=== PATIENT | female | born 2000 | race Two or more races ===

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

== ENCOUNTER 2018-10-19 11:28 | Emergency (ER) | payer SELFPAY ==
[~2018-10-19] VITALS: Ht 162.6 cm; Wt 89.4 kg
[~2018-10-19 11:28] MED LIST changes: +AMOX1TAB61 PO; +HYDR-2761 PO; +METR-34 PO; +OSEL75CA PO; +SULF1TAB24 PO
[2018-10-19 11:43] VITALS: BP 119/72
[2018-10-19] MEDS ORDERED: IV NORMAL SALINE 1000ML BAG 1,000 ML IV SCH (11:56)
[2018-10-19] MEDS ORDERED: ONDANSETRON PF 4 MG/2 ML VIAL. IV ONE (12:00)
--- NOTE | 2018-10-19 12:07 | PHYS DOC ---
Past Medical History Past Medical History: No Pertinent History, Other Additional Past Medical Histor: seasonal allergies Past Surgical History: No Surgical History Alcohol Use: None Drug Use: None Adult General Chief Complaint Chief Complaint: NAUSEA/VOMITING/DIARRHA HPI HPI Patient is a 18 year old female who presents with complaining of nausea and vomiting and diarrhea. Patient complaining of intermittent episodes of nausea and vomiting and diarrhea for the last 3 days. She had 3 episodes of vomiting 3 days ago and one episode of vomiting today with one episode of diarrhea. Patient complaining of constant nausea without abdominal pain, urinary symptoms, vaginal bleeding or discharge. Patient had negative home test at home and in triage. Patient states she had the same episode of nausea more than one year ago. Review of Systems Review of Systems Constitutional: Denies fever or chills [] Eyes: Denies change in visual acuity, redness, or eye pain [] HENT: Denies nasal congestion or sore throat [] Respiratory: Denies cough or shortness of breath [] Cardiovascular: No additional information not addressed in HPI [] GI: Denies abdominal pain, reports nausea, vomiting, diarrhea [] : Denies dysuria or hematuria [] Musculoskeletal: Denies back pain or joint pain [] Integument: Denies rash or skin lesions [] Neurologic: Denies headache, focal weakness or sensory changes [] Endocrine: Denies polyuria or polydipsia [] All other systems were reviewed and found to be within normal limits, except as documented in this note. Current Medications Current Medications Current Medications Medications (Trade) Dose Ordered Sig/Roc Start Time Stop Time Status Last Admin Dose Admin Ondansetron HCl (Zofran) 4 mg 1X ONCE 10/19/18 12:00 10/19/18 12:01 DC 10/19/18 12:07 4 MG Sodium Chloride 1,000 ml @ 1,000 mls/hr Q1H 10/19/18 11:56 10/19/18 12:55 DC 10/19/18 12:04 1,000 MLS/HR Allergies Allergies Allergies Coded Allergies Type Severity Reaction Last Updated Verified No Known Drug Allergies 06/07/16 No Physical Exam Physical Exam Constitutional: Well developed, well nourished, mild distress, non-toxic appe arance. [] HENT: Normocephalic, atraumatic, oropharynx moist. Eyes: PERRLA, EOMI, conjunctiva normal, no discharge. [] Neck: Normal range of motion, no tenderness, supple, no stridor. [] Cardiovascular:Heart rate regular rhythm, no murmur [] Lungs & Thorax: Bilateral breath sounds clear to auscultation [] Abdomen: Bowel sounds normal, soft, no tenderness, no masses, no pulsatile masses. [] Skin: Warm, dry, no erythema, no rash. [] Back: No tenderness, no CVA tenderness. [] Extremities: No tenderness, no cyanosis, no clubbing, ROM intact, no edema. [] Neurologic: Alert and oriented X 3, normal motor function, normal sensory function, no focal deficits noted. [] Psychologic: Affect anxious, judgement normal, mood normal. [] Current Patient Data Vital Signs Vital Signs Date Time Temp Pulse Resp B/P (MAP) Pulse Ox O2 Delivery O2 Flow Rate FiO2 10/19/18 11:43 98.2 80 17 119/72 (88) 99 Room Air 98.2 Lab Values Laboratory Tests Test 10/19/18 11:35 10/19/18 11:45 10/19/18 12:00 Urine Collection Type Unknown Urine Color Yellow Urine Clarity Clear Urine pH 7.5 Urine Specific [place] 1.015 Urine Protein Negative mg/dL (NEG-TRACE) Urine Glucose (UA) Negative mg/dL (NEG) Urine Ketones (Stick) Negative mg/dL (NEG) Urine Blood Small (NEG) Urine Nitrite Negative (NEG) Urine Bilirubin Negative (NEG) Urine Urobilinogen Dipstick 0.2 mg/dL (0.2 mg/dL) Urine Leukocyte Esterase Large (NEG) Urine RBC Occ /HPF (0-2) Urine WBC 5-10 /HPF (0-4) Urine Squamous Epithelial Cells Mod /LPF Urine Bacteria Few /HPF (0-FEW) POC Urine HCG, Qualitative Hcg negative (Negative) White Blood Count 5.6 x10^3/uL (4.0-11.0) Red Blood Count 4.45 x10^6/uL (3.50-5.40) Hemoglobin 13.5 g/dL (12.0-15.5) Hematocrit 40.1 % (36.0-47.0) Mean Corpuscular Volume 90 fL (79-100) Mean Corpuscular Hemoglobin 30 pg (25-35) Mean Corpuscular Hemoglobin Concent 34 g/dL (31-37) Red Cell Distribution Width 13.0 % (11.5-14.5) Platelet Count 299 x10^3/uL (140-400) Neutrophils (%) (Auto) 54 % (31-73) Lymphocytes (%) (Auto) 36 % (24-48) Monocytes (%) (Auto) 7 % (0-9) Eosinophils (%) (Auto) 3 % (0-3) Basophils (%) (Auto) 0 % (0-3) Neutrophils # (Auto) 3.0 x10^3/uL (1.8-7.7) Lymphocytes # (Auto) 2.0 x10^3/uL (1.0-4.8) Monocytes # (Auto) 0.4 x10^3/uL (0.0-1.1) Eosinophils # (Auto) 0.2 x10^3/uL (0.0-0.7) Basophils # (Auto) 0.0 x10^3/uL (0.0-0.2) Sodium Level 138 mmol/L (136-145) Potassium Level 4.2 mmol/L (3.5-5.1) Chloride Level 103 mmol/L (98-107) Carbon Dioxide Level 25 mmol/L (21-32) Anion Gap 10 (6-14) Blood Urea Nitrogen 6 mg/dL (7-20) L Creatinine 0.7 mg/dL (0.6-1.0) Estimated GFR (Cockcroft-Gault) 106.7 BUN/Creatinine Ratio 9 (6-20) Glucose Level 97 mg/dL (70-99) Calcium Level 8.8 mg/dL (8.5-10.1) Total Bilirubin 0.4 mg/dL (0.2-1.0) Aspartate Amino Transferase (AST) 17 U/L (15-37) Alanine Aminotransferase (ALT) 33 U/L (14-59) Alkaline Phosphatase 89 U/L (46-116) Total Protein 7.2 g/dL (6.4-8.2) Albumin 3.6 g/dL (3.4-5.0) Albumin/Globulin Ratio 1.0 (1.0-1.7) Lipase 61 U/L (73-393) L Laboratory Tests 10/19/18 12:00 Laboratory Tests 10/19/18 12:00 EKG EKG [] Radiology/Procedures Radiology/Procedures [] Course & Med Decision Making Course & Med Decision Making Pertinent Labs reviewed. (See chart for details) Evaluation of patient illness a 18-year-old female patient with complaining of episodes of nausea and vomiting and diarrhea. Patient had unremarkable physical exam and labs significant for UTI. Patient felt better after treatment with IV fluid and Zofran in ER. Patient was advised to take liquid diet and follow up with her primary care physician. I've spoken with the patient and/or caregivers. I've explained the patient's condition, diagnosis and treatment plan based on information available to me at this time. I've answered the patient's and/or caregivers questions and addressed any concerns. The patient and/or caregivers have a good understanding the patient's diagnosis, condition and treatment plan as can be expected at this point. Vital signs have been stabilized. The patient's condition is stable for discharge from the emergency department. The patient will pursue further outpatient evaluation with her primary care provider or other designated consulting physician as outlined in the discharge instructions. Patient and/or caregivers are agreeable to this plan of care and follow-up instructions have been explained in detail. The patient and/or caregivers have received these instructions in written format and expressed unde rstanding of these discharge instructions. The patient and her caregivers are aware that if any significant change in condition or worsening of symptoms should prompt him to immediately return to this of the closest emergency department. If an emergent department is not readily available I would en courage him to call 911. Dragon Disclaimer Dragon Disclaimer This electronic medical record was generated, in whole or in part, using a voice recognition dictation system. Departure Departure Impression: Primary Impression: Viral gastroenteritis Additional Impression: Urinary tract infection Disposition: HOME, SELF-CARE (at 1323) Condition: IMPROVED Referrals: SOPHIA BILLS MD (PCP) Patient Instructions: Urinary Tract Infection, Viral Gastroenteritis Additional Instructions: Drink plenty of liquids Follow-up with your primary care physician in 3-5 days Return to ER if not getting better Do not eat solid food today Scripts Ondansetron Hcl (ZOFRAN) 4 Mg Tablet 1 TAB PO PRN Q6-8HRS for nausea, #12 TAB Prov: BHAVNA SMYTH MD 10/19/18 Sulfamethoxazole/Trimethoprim (BACTRIM DS TABLET) 1 Each Tablet 1 TAB PO BID for infection, #6 TAB Prov: BHAVNA SMYTH MD 10/19/18 Problem Qualifiers Additional Impression: Urinary tract infection Urinary tract infection type: acute cystitis Hematuria presence: without hematuria Qualified Codes: N30.00 - Acute cystitis without hematuria BHAVNA SMYTH MD Oct 19, 2018 12:07
[2018-10-19 12:11] LABS: BASO % 0 % (0-3); EOS # 0.2 x10^3/uL (0.0-0.7); EOS % 3 % (0-3); HEMATOCRIT 40.1 % (36.0-47.0); HEMOGLOBIN 13.5 g/dL (12.0-15.5); LYMPH % 36 % (24-48); MEAN CORPUSCULAR HEMOGLOBIN 30 pg (25-35); MEAN CORPUSCULAR HGB CONC 34 g/dL (31-37); MEAN CORPUSCULAR VOLUME 90 fL (79-100); MONO # 0.4 x10^3/uL (0.0-1.1); MONO % 7 % (0-9); NEUT % 54 % (31-73); PLATELET COUNT 299 x10^3/uL (140-400); RED BLOOD COUNT 4.45 x10^6/uL (3.50-5.40); WHITE BLOOD COUNT 5.6 x10^3/uL (4.0-11.0)
[2018-10-19 12:27] LABS: CALCIUM 8.8 mg/dL (8.5-10.1); CREATININE 0.7 mg/dL (0.6-1.0); GFR 106.7; POTASSIUM 4.2 mmol/L (3.5-5.1)
[2018-10-19 12:33] LABS: ALBUMIN 3.6 g/dL (3.4-5.0); TOTAL BILIRUBIN 0.4 mg/dL (0.2-1.0); TOTAL PROTEIN 7.2 g/dL (6.4-8.2)
[2018-10-19 12:53] LABS: BILIRUBIN,URINE NEGATIVE (NEG); CLARITY,URINE CLEAR; COLOR,URINE YELLOW; NITRITE,URINE NEGATIVE (NEG); PH,URINE 7.5; PROTEIN,URINE NEGATIVE (NEG-TRACE); UROBILINOGEN,URINE 0.2 mg/dL (0.2 mg/dL)
[2018-10-19 12:57] LABS: BACTERIA,URINE FEW /HPF (0-FEW); RBC,URINE OCC /HPF (0-2); SQUAMOUS EPITHELIAL CELL,UR MOD /LPF
[2018-10-19] MEDS ORDERED: SULF1TAB24 PO (13:25)
[2018-10-19] MEDS ORDERED: ONDA4TAB7 PO (13:25)
== END 2018-10-19 13:35 | disposition home or self-care (01) ==
LOC: ER 11:28
DX: A08.4 Viral intestinal infection, unspecified (principal); N30.00 Acute cystitis without hematuria
CPT/HCPCS: 36415; 80053; 81001; 81025; 83690; 85025; 87086; 96361; 96374; 99284; J2405; J7030

== ENCOUNTER 2020-09-22 15:39 | Emergency (ER) | payer SELFPAY ==
[~2020-09-22] VITALS: Ht 162.6 cm; Wt 88.0 kg
[~2020-09-22 15:39] MED LIST changes: +ONDA4TAB7 PO
[2020-09-22 16:29] LABS: BASO % 1 % (0-3); EOS # 0.3 x10^3/uL (0.0-0.7); EOS % 4 % (0-3); HEMATOCRIT 35.9 % (36.0-47.0); HEMOGLOBIN 12.7 g/dL (12.0-15.5); LYMPH # 2.1 x10^3/uL (1.0-4.8); LYMPH % 33 % (24-48); MEAN CORPUSCULAR HEMOGLOBIN 32 pg (25-35); MEAN CORPUSCULAR HGB CONC 36 g/dL (31-37); MEAN CORPUSCULAR VOLUME 90 fL (79-100); MONO # 0.5 x10^3/uL (0.0-1.1); MONO % 8 % (0-9); NEUT # 3.5 x10^3/uL (1.8-7.7); NEUT % 54 % (31-73); PLATELET COUNT 280 x10^3/uL (140-400); RED BLOOD COUNT 3.98 x10^6/uL (3.50-5.40); RED CELL DISTRIBUTION WIDTH 12.9 % (11.5-14.5); WHITE BLOOD COUNT 6.5 x10^3/uL (4.0-11.0)
[2020-09-22] MEDS ORDERED: ONDANSETRON PF 4 MG/2 ML VIAL. IV ONE (16:30)
[2020-09-22] MEDS ORDERED: IV NORMAL SALINE 1000ML BAG 1,000 ML IV ONE (16:30)
[2020-09-22 16:35] LABS: BILIRUBIN,URINE NEGATIVE (NEG); CLARITY,URINE CLOUDY; COLOR,URINE YELLOW; NITRITE,URINE NEGATIVE (NEG); PH,URINE 5.5 (<5.0-8.0); PROTEIN,URINE NEGATIVE (NEG-TRACE); UROBILINOGEN,URINE 0.2 mg/dL (0.2 mg/dL)
[2020-09-22 16:43] LABS: BACTERIA,URINE MANY /HPF (0-FEW)
[2020-09-22 16:46] LABS: CALCIUM 8.8 mg/dL (8.5-10.1); CREATININE 0.8 mg/dL (0.6-1.0); GFR 89.7; POTASSIUM 3.9 mmol/L (3.5-5.1)
[2020-09-22 16:53] LABS: ALBUMIN 3.8 g/dL (3.4-5.0); ALBUMIN/GLOBULIN RATIO 1.3 (1.0-1.7); MAGNESIUM 1.8 mg/dL (1.8-2.4); TOTAL BILIRUBIN 0.3 mg/dL (0.2-1.0); TOTAL PROTEIN 6.8 g/dL (6.4-8.2)
[2020-09-22] MEDS ORDERED: ACETAMINOPHEN 500 MG TABLET PO ONE (17:45)
[2020-09-22 17:47] VITALS: BP 95/55
[2020-09-22] MEDS ORDERED: ONDA4TAB12 PO (18:09)
--- NOTE | 2020-09-22 18:09 | ED.ADGEN ---
Past Medical History Past Medical History: Other Additional Past Medical Histor: seasonal allergies, scoliosis Past Surgical History: No Surgical History Smoking Status: Never Smoker Alcohol Use: None Drug Use: None General Adult EDM: Chief Complaint: ABDOMINAL PAIN HPI: HPI: Patient is a 20 year old female who presents emergency department with complaints of nausea, vomiting, and diarrhea for the last 3 days. 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 She denies any fever, fatigue, abdominal pain, dysur ia, hematuria, or decreased sense of taste/smell. Patient reports she has had a dry cough with a sore throat, body aches, and a bit of a headache. Patient states in the last 24 hours she has had 1 episode of vomiting and one episode of diarrhea. She denies any blood in her stools or her emesis. Patient reports she has not been immunized against COVID-19 she denies any known exposure to anyone with COVID-19. She currently rates her pain 8 out of 10 on the pain scale, she denies any alleviating or exacerbating factors. Review of Systems: Review of Systems: Complete ROS is negative unless otherwise noted in HPI. Current Medications: Current Medications Medications (Trade) Dose Ordered Sig/[facility] Start Time Stop Time Status Last Admin Dose Admin Acetaminophen (Tylenol) 1,000 mg 1X ONCE 09/22/20 17:45 09/22/20 17:48 DC 09/22/20 17:52 1,000 MG Ondansetron HCl (Zofran) 4 mg 1X ONCE 09/22/20 16:30 09/22/20 16:31 DC 09/22/20 16:35 4 MG Sodium Chloride 1,000 ml @ 1,000 mls/hr 1X ONCE 09/22/20 16:30 09/22/20 17:29 DC 09/22/20 16:35 1,000 MLS/HR Allergies: Allergies: Allergies Coded Allergies Type Severity Reaction Last Updated Verified No Known Drug Allergies 06/07/16 No Physical Exam: PE: See Above Constitutional: Well developed, well nourished, no acute distress, non-toxic appearance. [] HENT: Normocephalic, atraumatic, bilateral external ears normal, nose normal. [] Eyes: PERRLA, EOMI, conjunctiva normal, no discharge. [] Neck: Normal range of motion, no stridor. [] Cardiovascular:Heart rate regular rhythm Lungs & Thorax: Respirations even and unlabored, no retractions, no respiratory distress Abdomen: soft, no tenderness, no rebound tenderness, no palpable masses Skin: Warm, dry, no erythema, no rash. [] Extremities: No cyanosis, ROM intact, no edema. [] Neurologic: Alert and oriented X 3, normal motor, normal sensory, no focal deficits noted. [] Psychologic: Affect normal, judgement normal, mood normal. [] Current Patient Data: Labs: Laboratory Tests Test 09/22/20 15:50 09/22/20 15:55 09/22/20 16:00 Urine Collection Type Unknown Urine Color Yellow Urine Clarity Cloudy Urine pH 5.5 (<5.0-8.0) Urine Specific [place] >=1.030 (1.000-1.030) Urine Protein Negative mg/dL (NEG-TRACE) Urine Glucose (UA) Negative mg/dL (NEG) Urine Ketones (Stick) Trace mg/dL (NEG) Urine Blood Negative (NEG) Urine Nitrite Negative (NEG) Urine Bilirubin Negative (NEG) Urine Urobilinogen Dipstick 0.2 mg/dL (0.2 mg/dL) Urine Leukocyte Esterase Moderate (NEG) Urine RBC 1-2 /HPF (0-2) Urine WBC 5-10 /HPF (0-4) Urine Squamous Epithelial Cells Many /LPF Urine Bacteria Many /HPF (0-FEW) Urine Mucus Marked /LPF White Blood Count 6.5 x10^3/uL (4.0-11.0) Red Blood Count 3.98 x10^6/uL (3.50-5.40) Hemoglobin 12.7 g/dL (12.0-15.5) Hematocrit 35.9 % (36.0-47.0) L Mean Corpuscular Volume 90 fL (79-100) Mean Corpuscular Hemoglobin 32 pg (25-35) Mean Corpuscular Hemoglobin Concent 36 g/dL (31-37) Red Cell Distribution Width 12.9 % (11.5-14.5) Platelet Count 280 x10^3/uL (140-400) Neutrophils (%) (Auto) 54 % (31-73) Lymphocytes (%) (Auto) 33 % (24-48) Monocytes (%) (Auto) 8 % (0-9) Eosinophils (%) (Auto) 4 % (0-3) H Basophils (%) (Auto) 1 % (0-3) Neutrophils # (Auto) 3.5 x10^3/uL (1.8-7.7) Lymphocytes # (Auto) 2.1 x10^3/uL (1.0-4.8) Monocytes # (Auto) 0.5 x10^3/uL (0.0-1.1) Eosinophils # (Auto) 0.3 x10^3/uL (0.0-0.7) Basophils # (Auto) 0.0 x10^3/uL (0.0-0.2) Sodium Level 142 mmol/L (136-145) Potassium Level 3.9 mmol/L (3.5-5.1) Chloride Level 107 mmol/L (98-107) Carbon Dioxide Level 27 mmol/L (21-32) Anion Gap 8 (6-14) Blood Urea Nitrogen 9 mg/dL (7-20) Creatinine 0.8 mg/dL (0.6-1.0) Estimated GFR (Cockcroft-Gault) 89.7 BUN/Creatinine Ratio 11 (6-20) Glucose Level 89 mg/dL (70-99) Calcium Level 8.8 mg/dL (8.5-10.1) Magnesium Level 1.8 mg/dL (1.8-2.4) Total Bilirubin 0.3 mg/dL (0.2-1.0) Aspartate Amino Transferase (AST) 16 U/L (15-37) Alanine Aminotransferase (ALT) 21 U/L (14-59) Alkaline Phosphatase 95 U/L (46-116) Total Protein 6.8 g/dL (6.4-8.2) Albumin 3.8 g/dL (3.4-5.0) Albumin/Globulin Ratio 1.3 (1.0-1.7) Lipase 38 U/L (73-393) L POC Urine HCG, Qualitative Hcg negative (Negative) Laboratory Tests 09/22/20 15:55 Laboratory Tests 09/22/20 15:55 Vital Signs: Vital Signs Date Time Temp Pulse Resp B/P (MAP) Pulse Ox O2 Delivery O2 Flow Rate FiO2 09/22/20 17:47 81 95/55 (68) 99 Room Air 09/22/20 15:50 97.9 16 97.9 EKG: EKG: [] Heart Score: C/O Chest Pain: No Radiology/Procedures: Radiology/Procedures: [] Course & Med Decision Making: Course & Med Decision Making Pertinent Labs and Imaging studies reviewed. (See chart for details) Patient is a 20-year-old female who presents emergency department with multiple complaints. Work-up included labs, fluids, and medications. CBC is unremarkable, CMP is unremarkable, UA revealed 5-10 white blood cells, patient denies any UTI symptoms. There is a rash on her extremities she has, the specimen is most likely contaminated. Patient was given a liter normal saline, and 4 mg of Zofran. She reported feeling better after these medications. Patient stated that her headache persisted it was now slightly better at a 4 out of 10 on the pain scale, she was given a p.o. challenge and a gram Tylenol. Patient tolerated these medications without vomiting. Prescription written for Zofran. Encourage patient to follow a clear liquid diet for 24 hours then advance diet as tolerated starting with bland foods. Follow-up with primary care doctor in the next 1 to 2 days, return to the ER symptoms worsen or fever develop. Patient verbalized an understanding of home care, medications, follow-up, and return to ED instructions and was in agreement with the plan of care. [] Adriana Disclaimer: Adriana Disclaimer: This electronic medical record was generated, in whole or in part, using a voice recognition dictation system. Departure Departure Impression: Primary Impression: Nausea, vomiting, and diarrhea Additional Impression: Headache Disposition: 01 HOME / SELF CARE / HOMELESS Condition: STABLE Referrals: NO PCP (PCP) Patient Instructions: Diarrhea, [id number], Headache, FAQs, Nausea and Vomiting, [place] Additional Instructions: Fill prescriptions and use them as directed. Recommend clear fluids for the next 24 hours. Then you may advance to bland foods such as bananas, rice, applesauce, and dry toast. Follow-up with your primary care doctor in the next 1-2 days. Return to the emergency room if your symptoms worsen or if fever develops. Scripts Ondansetron (ONDANSETRON ODT) 4 Mg Tab.rapdis 1 TAB PO PRN Q6-8HRS PRN for NAUSEA/VOMITING for 3 Days, #12 TAB 0 Refills Prov: PAULA PATTEN APRN 09/22/20 Problem Qualifiers Additional Impression: Headache Headache type: unspecified Headache chronicity pattern: acute headache Intractability: not intractable Qualified Codes: R51.9 - Headache, un specified PAULA PATTEN SEWER HAND Sep 22, 2020 18:09
--- NOTE | 2020-09-23 14:35 | NUR ---
IP: Attempted to contact pt concerning covid results. No answer, left a voicemail to return the call.
--- NOTE | 2020-09-24 13:12 | NUR ---
IP: Pt returned my call. Informed pt of negative COVID test. pt verbalized understanding.
== END 2020-09-22 18:35 | disposition home or self-care (01) ==
LOC: ER 15:39
DX: R11.2 Nausea with vomiting, unspecified (principal); Z20.822 Contact with and (suspected) exposure to COVID-19; R19.7 Diarrhea, unspecified; R51.9 Headache, unspecified
CPT/HCPCS: 36415; 80053; 81001; 81025; 83690; 83735; 85025; 87086; 96361; 96374; 99283; J2405; J7030; U0003; U0005

== ENCOUNTER 2020-10-12 17:04 | Emergency (ER) | payer SELFPAY ==
[~2020-10-12] VITALS: Ht 162.6 cm; Wt 90.0 kg
[~2020-10-12 17:04] MED LIST changes: +ONDA4TAB12 PO
[2020-10-12 18:09] LABS: BILIRUBIN,URINE NEGATIVE (NEG); CLARITY,URINE CLEAR; COLOR,URINE YELLOW; NITRITE,URINE NEGATIVE (NEG); PH,URINE 5.5 (<5.0-8.0); PROTEIN,URINE NEGATIVE (NEG-TRACE); UROBILINOGEN,URINE 0.2 mg/dL (0.2 mg/dL)
[2020-10-12 18:13] LABS: BARBITURATES NEG (NEG); BENZODIAZEPINES NEG (NEG); CANNABINOIDS POS (NEG); COCAINE NEG (NEG); METHADONE NEG (NEG); OPIATES NEG (NEG); PHENCYCLIDINE NEG (NEG)
[2020-10-12 18:18] LABS: AMPHETAMINE/METHAMPHETAMINE NEG (NEG)
[2020-10-12 18:31] LABS: BACTERIA,URINE 0 /HPF (0-FEW); RBC,URINE 20-40 /HPF (0-2)
--- NOTE | 2020-10-12 18:53 | PHYS DOC ---
Past Medical History Past Medical History: Other Additional Past Medical Histor: seasonal allergies, scoliosis Past Surgical History: No Surgical History Smoking Status: Never Smoker Alcohol Use: Occasionally Drug Use: None General Adult EDM: Chief Complaint: OTHER COMPLAINTS HPI: HPI: Patient is a 20 year old female who presents to the emergency department with the chief complaint of a syncopal episode that happened last Sunday night. Patient states that she felt as if her heart was slowing down and then she blacked out, patient states this was witnessed by her boyfriend who reports she did not do any shaking motion or anything that may look like seizure activity. Patient states that she was told she was unconscious for approximately 30 seconds, had her eyes open during the entire event, patient states that it took her another 30 seconds to gain her wits, patient states she was nauseated and vomited once, nausea was immediately relieved and she had no further vomiting. Patient states that this happened approximately a month ago with similar presentation and events. Patient denies any chest pains, shortness of breath, fever or chills, rashes of her skin, increased thirst or increased urination, denies any blood in her stool or in her urine, denies any physical pain or injury from her passing out spells. Patient states that she started her normal menstrual cycle yesterday, reports she is only on the control pill, has no allergies to medications, and has no primary care physician. Patient states she has had no dizzy spells or dizzy sensations or headaches or visual disturbances since last Sunday. Patient denies any other physical complaints or physical con cerns. Patient denies smoking cigarettes, states she drinks alcohol occasionally, denies illicit drug use. Review of Systems: Review of Systems: 14 body systems of review of systems have been reviewed. See HPI for pertinent positives and negative responses, otherwise all other systems are negative, nonpertinent or noncontributory. Constitutional: Negative except as outlined in HPI above. Skin: Negative except as outlined in HPI above. Eyes: Negative except as outlined in HPI above. HENT: Negative except as outlined in HPI above. Respiratory: Negative except as outlined in HPI above. Cardiovascular: Negative except as outlined in HPI above. GI: Negative except as outlined in HPI above. : Negative except as outlined in HPI above. Musculoskeletal: Negative except as outlined in HPI above. Integument: Negative except as outlined in HPI above. Neurologic: Negative except as outlined in HPI above. Endocrine: Negative except as outlined in HPI above. Lymphatic: Negative except as outlined in HPI above. Psychiatric: Negative except as outlined in HPI above. Heart Score: C/O Chest Pain: No Risk Factors: Risk Factors: DM, Current or recent (<one month) smoker, HTN, HLP, family history of CAD, obesity. Risk Scores: Score 0 - 3: 2.5% MACE over next 6 weeks - Discharge Home Score 4 - 6: 20.3% MACE over next 6 weeks - Admit for Clinical Observation Score 7 - 10: 72.7% MACE over next 6 weeks - Early Invasive Strategies Allergies: Allergies: Allergies Coded Allergies Type Severity Reaction Last Updated Verified No Known Drug Allergies 06/07/16 No Physical Exam: PE: Constitutional: Well developed, well nourished, no acute distress, non-toxic appearance. 20-year-old female in no apparent distress. HENT: Normocephalic, atraumatic. Patient speaking in normal voice tones, no battles sign, no raccoon eyes appreciated. Eyes: Conjunctiva normal, no discharge. PERRLA, pupils 4 mm. Neck: Normal range of motion, no stridor. Cardiovascular: No cyanosis appreciated, distal cap refill less than 2 seconds. Regular rate and rhythm for auscultation, PMI to the left. Lungs & Thorax: Patient is in no respiratory distress, no audible adventitious lung sounds appreciated. No adventitious lung sounds appreciated per auscultation, lung alexis clear. Abdomen: Nontender, no abnormalities noted. Skin: Warm, dry, no erythema, no rash. Back: No tenderness, no deformities. Extremities: No tenderness, no cyanosis, no clubbing, ROM intact, no edema. [] Neurologic: Alert and oriented X 3, normal motor function, normal sensory function, no focal deficits noted. Psychologic: Affect normal, judgement normal, mood normal. Current Patient Data: Labs: Laboratory Tests Test 10/12/20 17:30 10/12/20 17:40 10/12/20 17:54 Urine Collection Type Unknown Urine Color Yellow Urine Clarity Clear Urine pH 5.5 (<5.0-8.0) Urine Specific Hughes 1.025 (1.000-1.030) Urine Protein Negative mg/dL (NEG-TRACE) Urine Glucose (UA) Negative mg/dL (NEG) Urine Ketones (Stick) Negative mg/dL (NEG) Urine Blood Large (NEG) Urine Nitrite Negative (NEG) Urine Bilirubin Negative (NEG) Urine Urobilinogen Dipstick 0.2 mg/dL (0.2 mg/dL) Urine Leukocyte Esterase Negative (NEG) Urine RBC 20-40 /HPF (0-2) Urine WBC 1-4 /HPF (0-4) Urine Squamous Epithelial Cells Mod /LPF Urine Bacteria 0 /HPF (0-FEW) Urine Mucus Marked /LPF Urine Opiates Screen Neg (NEG) Urine Methadone Screen Neg (NEG) Urine Barbiturates Neg (NEG) Urine Phencyclidine Screen Neg (NEG) Urine Amphetamine/Methamphetamine Neg (NEG) Urine Benzodiazepines Screen Neg (NEG) Urine Cocaine Screen Neg (NEG) Urine Cannabinoids Screen Pos (NEG) Urine Ethyl Alcohol Neg (NEG) POC Urine HCG, Qualitative Hcg negative (Negative) Glucose (Fingerstick) 79 mg/dL (70-99) Vital Signs: Vital Signs Date Time Temp Pulse Resp B/P (MAP) Pulse Ox O2 Delivery O2 Flow Rate FiO2 10/12/20 17:30 98.2 64 16 138/79 (68) 100 Room Air 98.2 EKG: EKG: [] Radiology/Procedures: Radiology/Procedures: [] Course & Med Decision Making: Course & Med Decision Making Pertinent Labs and Imaging studies reviewed. (See chart for details) 20-year-old female, vital signs reviewed, presents emergency department with complaints of syncopal episodes. Physical examination unremarkable, concerning that patient has waited several days after syncopal episode to have medical examination. When questioned, patient states it was more convenient for her to come to the ER today to be seen. Patient is in no distress, discussed with patient will order urinalysis assay, urine test, urine drug screen. Fingerstick blood sugar. Discussed with patient strict follow-up with PCP for ongoing evaluation of complaints. Patient is amenable to this plan. The patient's urine showed large amount of blood, most likely related to patient on her menstrual cycle, there was no infection appreciated, the patient is not , the patient's bedside fingerstick blood sugar within normal limits, patient's urine drug screen showed marijuana. The patient's description of her syncopal episodes has a vasovagal type component, however patient denied any illicit drug use, there was marijuana and urine, there is a possibility patient was under the influence of another substance as it was 10 October evening when her symptoms presented and she had her syncopal episode, there did not seem to be any concern by her or her companions that she required a medical evaluation at that time. The patient's vital signs were stable, she was not hypoxic, she was in no distress, she was nontoxic in appearance. Discussed with patient follow- up with PCP, strict return to emergency department precautions and concerns, patient gave verbal understanding of instructions, states she is ready to go home and has no further questions or concerns, patient was hemodynamically stable at disposition time, patient was discharged home without incident. Dragon Disclaimer: [employer] Disclaimer: This electronic medical record was generated, in whole or in part, using a voice recognition dictation system. Departure Departure Impression: Primary Impression: Syncopal episodes Qualified Codes: R55 - Syncope and collapse Disposition: 01 HOME / SELF CARE / HOMELESS Condition: GOOD Referrals: NO PCP (PCP) Patient Instructions: Syncope Additional Instructions: You were seen today in the emergency department for concerns of syncopal e pisodes. Your examination did not show any findings that would warrant an admission to the hospital or immediate attention by a medical terminologist. Your blood sugar was within normal limits today, there was no sign of infection in your urine. You are not . You were not having any symptoms today or over the past 2 days. As we discussed, I recommend that you follow-up with a primary care physician that can further follow-up your symptoms. I have provided you with local resources to obtain a primary care physician. Please return to the emergency department immediately for worsening symptoms or other concerns. It was a pleasure taking care of you today in the emergency department and I thank you for allowing me to participate in your emergency he althcare needs. EMERGENCY DEPARTMENT GENERAL DISCHARGE INSTRUCTIONS Thank you for coming to [facility] Emergency Department (ED) today and trusting us with you care. We trust that you had a positive experience in our Emergency Department. If you wish to speak to the department management, you may call the Director at [phone]. YOUR FOLLOW UP INSTRUCTIONS ARE FOLLOWS: 1. Do you have a private Doctor? If you do not have a private doctor, please ask for a resource list of physicians or clinics that may be able to assist you with follow up care. 2. The Emergency Physicain has interpreted your x-rays. The X-Ray specialist will also review them. If there is a change in the findings, you will be notified in 48 hours when at all possible. 3. A lab test or culture has been done, your results will be reviewed and you will be notified if you need a change in treatment. ADDITIONAL INSTRUCTIONS AND INFORMATION: 1. Your care today has been supervised by a physician who is specially trained in emergency care. Many problems require more than one evaluation for a complete diagnosis and treatment. We recommend that you schedule your follow up appointment as recommended to ensure complete treatment of you illness or injury. If you are unable to obtain follow up care and continue to have a problem, or if your condition worsens, we recommend that you return to the ED. 2. We are not able to safely determine your condition over the phone nor are we able to give sound medical advice over the phone. For these safety reasons, if you call for medical advice we will ask you to come to the ED for further evaluation. 3. If you have any questions regarding these discharge instructions please call the ED at [phone]. SAFETY INFORMATION: In the interest of safety, wellness, and injury prevention; we encourage you to wear your sealbelt, if you smoke; quite smoking, and we encourage family to use a protective helmet for bicycling and other sporting events that present an increased risk for head injury. IF YOUR SYMPTOMS WORSEN OR NEW SYMPTOMS DEVELOP, OR YOU HAVE CONCERNS ABOUT YOUR CONDITION; OR IF YOUR CONDITION WORSENS WHILE YOU ARE WAITING FOR YOUR FOLLOW UP APPOINTMENT; EITHER CONTACT YOUR PRIMARY CARE DOCTOR, THE PHYSICIAN WHOSE NAME AND NUMBER YOU WERE GIVEN, OR RETURN TO THE ED IMMEDIATELY. ELOINA RODRIGUEZ APRN Oct 12, 2020 18:53
[2020-10-12 19:30] VITALS: BP 138/79
== END 2020-10-12 19:30 | disposition home or self-care (01) ==
LOC: ER 17:04
DX: R55 Syncope and collapse (principal)
CPT/HCPCS: 80307; 81001; 81025; 82962; 99283

== ENCOUNTER 2020-10-23 19:40 | Emergency (ER) | payer SELFPAY ==
[~2020-10-23] VITALS: Ht 162.6 cm; Wt 87.2 kg
[2020-10-23 19:50] VITALS: BP 125/92
[2020-10-23 20:23] LABS: BILIRUBIN,URINE NEGATIVE (NEG); CLARITY,URINE CLEAR; COLOR,URINE AMBER; NITRITE,URINE NEGATIVE (NEG); PH,URINE 5.5 (<5.0-8.0); PROTEIN,URINE 30 mg/dL (NEG-TRACE); UROBILINOGEN,URINE 0.2 mg/dL (0.2 mg/dL)
[2020-10-23 20:30] LABS: U PREG PATIENT NEGATIVE (NEG)
[2020-10-23 20:32] LABS: BACTERIA,URINE 0 /HPF (0-FEW)
[2020-10-24] MEDS ORDERED: ONDA4TAB12 PO (22:17)
== END 2020-10-23 21:15 | disposition left against medical advice (07) ==
LOC: ER 19:40
DX: R05 Cough (principal); R11.10 Vomiting, unspecified; R50.9 Fever, unspecified; Z53.21 Procedure and treatment not carried out due to patient leaving prior to being seen by health care provider
CPT/HCPCS: 81001; 81025; 87086

== ENCOUNTER 2020-10-24 19:54 | Emergency (ER) | payer SELFPAY ==
[~2020-10-24] VITALS: Ht 162.6 cm; Wt 87.7 kg
[2020-10-24] MEDS ORDERED: ONDANSETRON ODT 4 MG TAB.RAPDIS. PO ONE (21:30)
--- NOTE | 2020-10-24 22:15 | PHYS DOC ---
Past Medical History Past Medical History: Other Additional Past Medical Histor: seasonal allergies, scoliosis, SYNCOPE Past Surgical History: No Surgical History Smoking Status: Never Smoker Alcohol Use: Occasionally Drug Use: None General Adult EDM: Chief Complaint: NAUSEA/VOMITING/DIARRHEA HPI: HPI: 20-year-old female presents to the ED with complaints of nausea, vomiting and frontal headache reporting the pain is behind her eyes stating "I can't eat." Reports boyfriend recently tested positive for Covid. March. LMP was yesterday. Is not a tobacco smoker. Is not vaccinated for Covid. Is requesting medication for vomiting and headache. Review of Systems: Review of Systems: Constitutional: Denies fever or chills. [] Eyes: Denies change in visual acuity. [] HENT: Denies nasal congestion or sore throat. [] Respiratory: Denies cough or shortness of breath. [] Cardiovascular: Denies chest pain or edema. [] GI: Denies bloody stools or diarrhea. [] : Denies dysuria or vaginal bleeding Musculoskeletal: Denies back pain or joint pain. [] Integument: Denies rash or diaphoresis Neurologic: Denies neck stiffness, focal weakness or sensory changes. [] Endocrine: Denies polyuria or polydipsia. [] Lymphatic: Denies swollen glands. [] Psychiatric: Denies depression or anxiety. [] Heart Score: C/O Chest Pain: No Risk Factors: Risk Factors: DM, Current or recent (<one month) smoker, HTN, HLP, family history of CAD, obesity. Risk Scores: Score 0 - 3: 2.5% MACE over next 6 weeks - Discharge Home Score 4 - 6: 20.3% MACE over next 6 weeks - Admit for Clinical Observation Score 7 - 10: 72.7% MACE over next 6 weeks - Early Invasive Strategies Current Medications: Current Medications Medications (Trade) Dose Ordered Sig/Roc Start Time Stop Time Status Last Admin Dose Admin Ondansetron HCl (Zofran Odt) 4 mg 1X ONCE 10/24/20 21:30 10/24/20 21:31 DC 10/24/20 21:28 4 MG Allergies: Allergies: Allergies Coded Allergies Type Severity Reaction Last Updated Verified No Known Drug Allergies 06/07/16 No Physical Exam: PE: Constitutional: Well developed, well nourished, no acute distress, non-toxic appearance. HENT: Normocephalic, atraumatic, mildly erythematous oropharynx with no palatal petechiae or pharyngeal exudates, moist mucous membranes Eyes: EOMI, conjunctiva normal, no discharge. Neck: Normal range of motion, supple, Cardiovascular: S1/2 present, regular rhythm Lungs & Thorax: Speaking in full sentences, bilateral equal chest rise, no tachypnea or increased work of breathing Abdomen: soft, no tenderness, Skin: Warm, dry, Back: No tenderness, no CVA tenderness. [] Extremities: No tenderness, no cyanosis, no lower extremity edema Neurologic: Alert and oriented X 3, normal motor function, normal sensory function, no focal deficits noted. [] Psychologic: Affect normal, judgement normal, mood normal. [] Current Patient Data: Labs: Laboratory Tests Test 10/24/20 21:00 10/24/20 21:01 SARS-CoV-2 Antigen (Rapid) Positive (NEGATIVE) *A POC Urine HCG, Qualitative Hcg negative (Negative) Vital Signs: Vital Signs Date Time Temp Pulse Resp B/P (MAP) Pulse Ox O2 Delivery O2 Flow Rate FiO2 10/24/20 20:00 98.4 107 16 159/85 (98) 97 Room Air 98.4 EKG: EKG: [] Radiology/Procedures: Radiology/Procedures: [] Course & Med Decision Making: Course & Med Decision Making Pertinent Labs and Imaging studies reviewed. (See chart for details) COVID-19 CRITERIA: The patient was evaluated during the global COVID-19 pandemic, and that diagnosis was suspected/considered upon their initial presentation. Their evaluation, treatment and testing was consistent with current guidelines for patients who present with complaints or symptoms that may be related to COVID-19. Concern for acute upper respiratory infection in the setting of Covid. Patient's vomiting controlled in ED, headache resolved. Will discharge home with strict ED return precautions were given for strokelike symptoms, chest pain, difficulties breathing or increased work of breathing. Encouraged urgent outpatient follow-up with PMD. Life-threatening processes were considered but are low suspicion at this time, given history, physical exam and ED workup. Pt was educated on all prescription medications and adverse effects. All patient's questions were answered and pt was stable at time of discharge. Life/limb-threatening differential includes but is not limited to, airway emergency or respiratory distress/ARDS or fatigue or head or neck swelling, tox idrome, sepsis/shock, angioedema, anaphylaxis, congestive heart failure, myocarditis, acute myocardial infarction, dysrhythmias, cardiomyopathy, venous thromboembolism, pulmonary emboli, acute necrotizing hemorrhagic encephalopathy ,cerebral venous thrombosis, meningitis, encephalitis or CVA. I have spoken with the patient and/or caregivers. I explained the patient's condition, diagnoses and treatment plan based on the information available to me at this time. I have answered the patient and/or caregiver's questions and addressed any concerns. The patient and/or caregivers have a good understanding of patient's diagnosis, condition and treatment plan as can be expected at this point. Vital signs have been stable. Patient's condition is stable and appro priate for discharge from the emergency department. Patient will pursue further outpatient evaluation with primary care physician or other designated or consulting physician as outlined in the discharge instructions. The patient and/or caregivers are agreeable to this plan of care and follow-up instructions have been explained in detail. The patient and/or caregivers have received these instructions in written form and have expressed an understanding of the discharge instructions. The patient and/or caregivers are aware that any significant change of condition or worsening of symptoms should prompt immediate return to this or the closest emergency department or call to 911. Adriana Disclaimer: Adriana Disclaimer: This electronic medical record was generated, in whole or in part, using a voice recognition dictation system. Departure Departure Impression: Primary Impression: COVID-19 Disposition: HOME / SELF CARE / HOMELESS Condition: STABLE Referrals: NO PCP (PCP) Follow-up with your primary care physician in 1 week OR FOLLOW UP WITH FAMILY MEDICINE: [address], [address] [place] [address] Patient Instructions: Upper Respiratory Infection, Adult Additional Instructions: Return to ED immediately if your oxygen level drops below 90% (purchase a pulse oximetry at a medical supply store), difficulties breathing including rapid breathing or increased work of breathing (skin sucking under ribs), chest pain or stroke-like symptoms (facial droop, speech changes, arm/leg weakness). You have been tested for or diagnosed with COVID-19. It is an infection caused by a new type of coronavirus. COVID-19 will cause cold-like or mild flu symptoms in most. It can cause more severe symptoms like problems breathing in some. There is no treatment for COVID-19. The body will clear the infection over time. Self-care will help to ease discomfort. Steps to Take: Self-Care Rest as needed. Healthy habits may help you feel better. Steps include: Choose healthy foods including fruits and vegetables. Drink water throughout the day. Get plenty of sleep each night. If you smoke, try to quit. It may ease breathing. Avoid alcohol. Keep Others Healthy The virus can spread to others. Droplets are released every time you sneeze or cough. The droplets can get into the mouth, nose, or eyes of people near you and lead to infection. To lower the chances of spreading COVID-19 to others: Stay at home until your doctor has said it is safe to leave. If you tested positive this will mean staying isolated until both of the following are true: At least 7 days have passed since the start of illness. You are free of fever for at least 72 hours without the use of medicine. During this time: - Avoid public areas, events, or transportation. Do not return to work or school until your doctor has said it is safe to do so. - Call ahead if you need to go to a medical center. Let them know you may have COVID-19. It will help them guide you where to go. They may also ask you to wear a facemask when you come to the office. - If you call for emergency medical services, let them know you may have COVID- 19. While at home: - Try to avoid close contact with others. Stay about 6 feet away. - If possible, spend most of your time in a separate room from others. - Use a face mask if you will be in close contact with others such as sharing a room or vehicle. - Have someone wipe down common surfaces in the home. Use household film archivist every day on areas like doorknobs, counters, or sinks. - Cough or sneeze into a tissue. Throw the tissue away right after use. If a tissue is not available, cough or sneeze into your elbow. - Wash your hands often. Wash them after sneezing or coughing. Use soap and water and wash for at least 20 seconds. Alcohol based hand wheel cleaner can be used if soap and water is not available. - Do not prepare food for others. Avoid sharing personal items like forks, spoons, or toothbrushes. - Avoid close contact with pets while you are sick. There is no evidence of the virus passing to pets. This is a safety step until more is known about this virus. Isolation can be frustrating. Social interaction can help. Keep in touch with friends and family through phone and tech options. You can still interact with others in your home, just keep a safe distance of about 6 feet. Follow-up: Your doctors office will check in with you to see if there are any changes in your health. You may be asked to keep track of symptoms to share with them. They will also let you know when you are clear to be in public again. Problems to Look Out For: Contact your doctor if your recovery is not going as you expect. Get emergency care if you have problems such as: - Trouble breathing - Nonstop chest pain or pressure - Changes in awareness, confusion, or problems waking - Lips or face have bluish color - Worsening of symptoms If you think you have an emergency, call for emergency medical services right away. As taken from [facility] Ondansetron (ONDANSETRON ODT) 4 Mg Tab.rapdis 1 TAB PO PRN Q6-8HRS, #20 TAB Prov: KAITY ESTEVES DO 10/24/20 KAITY ESTEVES DO Oct 24, 2020 22:14
[2020-10-24 22:16] VITALS: BP 123/73
[2020-10-24] MEDS ORDERED: ONDA4TAB12 PO (22:17)
--- NOTE | 2020-10-25 09:44 | NUR ---
IP: Attempted to contact pt concerning covid results. No answer, left a voicemail to return the call.
--- NOTE | 2020-10-25 10:12 | NUR ---
IP: Pt returned call. I verified pt's knowledge of positive covid test and the need to quarantine x 10 days. Pt verbalized understanding.
== END 2020-10-24 22:40 | disposition home or self-care (01) ==
LOC: ER 19:54
DX: U07.1 COVID-19 (principal)
CPT/HCPCS: 81025; 87426; 99283; U0003

== ENCOUNTER 2021-04-13 11:08 | Emergency (ER) | payer SELFPAY ==
[~2021-04-13] VITALS: Ht 162.6 cm; Wt 88.1 kg
[2021-04-13 13:50] VITALS: BP 120/75
--- NOTE | 2021-04-13 14:18 | PHYS DOC ---
Past Medical History Past Medical History: Other Additional Past Medical Histor: seasonal allergies, scoliosis, SYNCOPE Past Surgical History: No Surgical History Smoking Status: Never Smoker Alcohol Use: Occasionally Drug Use: None General Adult EDM: Chief Complaint: FLU SYMPTOM HPI: HPI: Patient is a 20-year-old female who presents to the emergency department for a nonproductive cough, sore throat, nasal congestion and drainage, body aches and chills that started 2 days ago. Patient is vaccinated for COVID-19. She denies any sick exposures, fevers, nausea, vomiting. Review of Systems: Review of Systems: Constitutional: See HPI HENT: See HPI Respiratory: See HPI GI: See HPI Musculoskeletal: See HPI Heart Score: C/O Chest Pain: N/A Risk Factors: Risk Factors: DM, Current or recent (<one month) smoker, HTN, HLP, family history of CAD, obesity. Risk Scores: Score 0 - 3: 2.5% MACE over next 6 weeks - Discharge Home Score 4 - 6: 20.3% MACE over next 6 weeks - Admit for Clinical Observation Score 7 - 10: 72.7% MACE over next 6 weeks - Early Invasive Strategies Allergies: Allergies: Allergies Coded Allergies Type Severity Reaction Last Updated Verified No Known Drug Allergies 04/13/21 No Physical Exam: PE: Constitutional: Well developed, well nourished, no acute distress, non-toxic appearance. [] HENT: Normocephalic, atraumatic, bilateral external ears normal, patient maintaining secretions, uvula midline, no trismus, no phonation changes, erythematous oropharynx, 2+ tonsillar enlargement without exudate, oropharynx moist, no oral exudates, nose normal. [] Eyes: PERRL, EOMI, conjunctiva normal, no discharge. [] Neck: Normal range of motion, no tenderness, supple, no stridor. [] Cardiovascular:Heart rate regular rhythm, no murmur [] Lungs & Thorax: Bilateral breath sounds clear to auscultation [] Abdomen: Bowel sounds normal, soft, no tenderness, no masses, no pulsatile masses. [] Skin: Warm, dry, no erythema, no rash. [] Back: Normal range of motion Extremities: No tenderness, no cyanosis, no clubbing, ROM intact, no edema. [] Neurologic: Alert and oriented X 3, normal motor function, normal sensory function, no focal deficits noted. [] Psychologic: Affect normal, judgement normal, mood normal. [] EKG: EKG: [] Radiology/Procedures: Radiology/Procedures: [] Course & Med Decision Making: Course & Med Decision Making Pertinent Labs and Imaging studies reviewed. (See chart for details) [] Patient presents emergency department for cough, sore throat, nasal congestion/drainage, body aches and chills. Patient will be tested for influenza, Covid and strep throat. Rapid strep and influenza was negative. Patient will be notified of her Covid results when they become available in approximately 1 to 2 days. She is advised to self isolate until she receives these results. She was educated on symptomatic treatment if she is Covid positive. I discussed with patient all findings and diagnostic testing as well as the need to follow-up with PCP for further evaluation and treatment or return to the ER if any new or worsening symptoms. Strict return precautions were also discussed at length. Patient voiced understanding and agreement with the plan. Patient is hemodynamically stable at the time of disposition. Adriana Disclaimer: Adriana Disclaimer: This electronic medical record was generated, in whole or in part, using a voice recognition dictation system. Departure Departure Impression: Primary Impression: Person under investigation for COVID-19 Disposition: HOME / SELF CARE / HOMELESS Condition: GOOD Referrals: NON,STAFF (PCP) Patient Instructions: Cough, Adult Additional Instructions: You were seen in the emergency department for cough, sore throat, nasal congestion/drainage, body aches and chills. Your rapid strep and influenza test was negative. We tested you in the ER for COVID-19 you will be notified of those results when they become available in approximately 1 to 2 days. Please self isolate until you receive these results. If you are positive for COVID-19 please isolate per CDC guidelines. Increase your fluids and rest. For your sore throat you can perform warm salt water gargles. For your body aches please take Tylenol and/or ibuprofen. For your cough you can take Delsym [id number]. Follow-up with your primary care provider tomorrow regarding your ER visit. Please return to the emergency department if you develop sh ortness of breath, chest pain, intractable nausea or vomiting, high fevers refractory to treatment. ANGELITA CORONA SLIPMAN Apr 13, 2021 14:18
[2021-04-13 14:38] LABS: INFLUENZA A PATIENT NEGATIVE (NEGATIVE); INFLUENZA B PATIENT NEGATIVE (NEGATIVE)
== END 2021-04-13 14:59 | disposition home or self-care (01) ==
LOC: ER 11:08
DX: U07.1 COVID-19 (principal)
CPT/HCPCS: 87070; 87426; 87804; 87880; 99283

== ENCOUNTER 2021-06-28 12:02 | Emergency (ER) | payer OTHER ==
[~2021-06-28] VITALS: Ht 165.1 cm; Wt 88.9 kg
[2021-06-28] MEDS ORDERED: ONDANSETRON PF 4 MG/2 ML VIAL. IVP ONE (13:15)
[2021-06-28] MEDS ORDERED: ALBUTEROL SULFATE 2.5 MG/3 ML NEBU. NEB ONE (13:15)
[2021-06-28] MEDS ORDERED: TERBUTALINE 1 MG/ML VIAL. SQ ONE (13:15)
[2021-06-28] MEDS ORDERED: IV NORMAL SALINE 1000ML BAG 1,000 ML IV ONE (13:15)
--- NOTE | 2021-06-28 13:33 | PHYS DOC ---
Past Medical History Past Medical History: Other Additional Past Medical Histor: seasonal allergies, scoliosis, SYNCOPE Past Surgical History: No Surgical History Smoking Status: Never Smoker Alcohol Use: None Drug Use: None General Adult EDM: Chief Complaint: ABDOMINAL PAIN IN HPI: HPI: Patient is a 21-year-old female that presents today with abdominal pain and . Patient states that her last normal menstrual period was May [id number] she states she is approximately 7 weeks , she said she has not seen an [facility] for this , but does have an appointment in 2 weeks with the [facility] clinic. Patient states that over the last week or so she has had increased nausea vomiting and diarrhea, along with mid abdominal pain, she states she also has vaginal discharge as well. Patient states this is her first , and she has had an STI when she was 14 years of age. Review of Systems: Review of Systems: Constitutional: Denies fever or chills. [] Eyes: Denies change in visual acuity. [] HENT: Denies nasal congestion or sore throat. [] Respiratory: Denies cough or shortness of breath. [] Cardiovascular: Denies chest pain or edema. [] GI: abdominal pain, nausea, vomiting, diarrhea, denies bloody stool [] GUGYN: dysuria, vaginal discharge denies vaginal bleeding [] Musculoskeletal: Denies back pain or joint pain. [] Integument: Denies rash. [] Neurologic: Denies headache, focal weakness or sensory changes. [] Endocrine: Denies polyuria or polydipsia. [] Lymphatic: Denies swollen glands. [] Psychiatric: Denies depression or anxiety. [] Heart Score: C/O Chest Pain: No Risk Factors: Risk Factors: DM, Current or recent (<one month) smoker, HTN, HLP, family history of CAD, obesity. Risk Scores: Score 0 - 3: 2.5% MACE over next 6 weeks - Discharge Home Score 4 - 6: 20.3% MACE over next 6 weeks - Admit for Clinical Observation Score 7 - 10: 72.7% MACE over next 6 weeks - Early Invasive Strategies Current Medications: Current Medications Medications (Trade) Dose Ordered Sig/Roc Start Time Stop Time Status Last Admin Dose Admin Albuterol Sulfate (Ventolin Neb Soln) 2.5 mg 1X ONCE 06/28/21 13:15 06/28/21 13:16 Cancel Ondansetron HCl (Zofran) 4 mg 1X ONCE 06/28/21 13:15 06/28/21 13:16 DC Sodium Chloride 1,000 ml @ 999 mls/hr 1X ONCE 06/28/21 13:15 06/28/21 14:15 Terbutaline Sulfate (Brethine) 0.25 mg 1X ONCE 06/28/21 13:15 06/28/21 13:16 Cancel Allergies: Allergies: Allergies Coded Allergies Type Severity Reaction Last Updated Verified No Known Drug Allergies 06/28/21 No Physical Exam: PE: Constitutional: Well developed, well nourished, no acute distress, non-toxic appearance. [] HENT: Normocephalic, atraumatic, bilateral external ears normal, oropharynx moist, no oral exudates, nose normal. [] Eyes: PERRLA, EOMI, conjunctiva normal, no discharge. [] Neck: Normal range of motion, no tenderness, supple, no stridor. [] Cardiovascular:Heart rate regular rhythm, no murmur [] Lungs & Thorax: Bilateral breath sounds clear to auscultation [] Abdomen: Bowel sounds normal, soft, no tenderness, no masses, no pulsatile masses. [] Skin: Warm, dry, no erythema, no rash. [] Back: No tenderness, no CVA tenderness. [] Extremities: No tenderness, no cyanosis, no clubbing, ROM intact, no edema. [] Neurologic: Alert and oriented X 3, normal motor function, normal sensory function, no focal deficits noted. [] Psychologic: Affect normal, judgement normal, mood normal. [] Current Patient Data: Labs: WET PREP Final YEAST NONE SEEN TRICHOMONAS NONE SEEN CLUE CELLS CLUE CELLS PRESENT ALTERED JACKIE ALTERED JACKIE PRESENT SUGGESTIVE OF BACTERIAL VAGINOSIS Laboratory Tests Test 06/28/21 12:37 POC Urine HCG, Qualitative Hcg positive (Negative) Vital Signs: Vital Signs Date Time Temp Pulse Resp B/P (MAP) Pulse Ox O2 Delivery O2 Flow Rate FiO2 06/28/21 17:15 91 14 100 06/28/21 15:36 88 16 99 06/28/21 14:38 86 14 98 06/28/21 12:27 97.8 79 14 112/63 (79) 97 Room Air 97.8 Vital Signs Date Time Temp Pulse Resp B/P (MAP) Pulse Ox O2 Delivery O2 Flow Rate FiO2 06/28/21 12:27 97.8 79 14 112/63 (79) 97 Room Air 97.8 EKG: EKG: [] Radiology/Procedures: Radiology/Procedures: REASON: ABDOMINAL PAIN AND +PREG PROCEDURE: OB < 14 WKS US OB <14 WKS +TV History: Reason: ABDOMINAL PAIN AND +PREG / Spl. Instructions: / History: Comparison: None. Technique: Grayscale and color Doppler imaging of the pelvis was performed using transabdominal technique. Findings: The uterus measures 12.4 x 7.2 x 5.6 cm. Single intrauterine gestational sac with regular appearance. Yolk sac is identified. pole is identified with crown-rump length 1.25 cm. Adjustment gestational age by ultrasound 7 weeks 3 days. heart rate 160 bpm. No perigestational fluid collection. Estimated date of delivery by ultrasound February 11, 2022. Right ovary measures 2.6 x 2.0 x 1.6 cm. Left ovary measures 2.8 x 2.0 x 1.7 cm. Normal Doppler flow to the ovaries bilaterally. No adnexal masses are seen. IMPRESSION: 1. Single intrauterine with gestational age 7 weeks 3 days heart rate 160 bpm. Electronically signed by: Deion Cain DO (06/28/2021 2:12 PM) [id number][] Course & Med Decision Making: Course & Med Decision Making Pertinent Labs and Imaging studies reviewed. (See chart for details) [id number] English regarding this patient, he recommended to treat the patient for bacterial vaginosis and STIs along with her UTI. We will give the patient Zithromax 1000 mg p.o. and Rocephin 1 g IV here in the emergency department, will order Flagyl and Macrobid to be taken in outpatient patient is for her UTI and BV. Did speak to patient regarding this and she is agreeable to the plan of care. She is to follow-up with her primary [facility] at the [facility] in 2 weeks as prescribed or return here to the emergency department if she continues to have problems. Patient was also encouraged to increase by mouth fluids her urine did show that she was a little bit dehydrated, I will order some Zofran as needed for nausea and vomiting. Patient verbalized understanding of all this. Adriana Disclaimer: Adriana Disclaimer: This electronic medical record was generated, in whole or in part, using a voice recognition dictation system. Departure Departure Impression: Primary Impression: Bacterial vaginosis Additional Impressions: Nausea and vomiting during Abdominal pain during Qualified Codes: O26.891 - Other specified related conditions, first trimester; R10.9 - Unspecified abdominal pain UTI (urinary tract infection) Qualified Codes: N30.00 - Acute cystitis without hematuria Disposition: HOME / SELF CARE / HOMELESS Condition: STABLE Referrals: NON,STAFF (PCP) ELOINA CAIN MD Patient Instructions: Bacterial Vaginosis, Nausea and Vomiting, - Urinary Tract Infection Additional Instructions: Macrobid 1 tablet twice daily for 7 full days Flagyl 1 tablet 3 times daily for 7 full days Zofran take 1 tablet every 6-8 hours as needed for nausea, use with caution may cause constipation Increase by mouth fluid Follow-up with your primary care physician at the [facility] clinic or with Dr. Cain listed in the referral sections for further management of your Return to the emergency department if you are unable to keep any by mouth fluids down even with the use of Zofran, your abdominal pain worsens, you have vaginal bleeding or development of a fever. Scripts Ondansetron (ONDANSETRON ODT) 4 Mg Tab.rapdis 1 TAB PO PRN Q6-8HRS for NAUSEA, #16 TAB Prov: CORNELIO CUADRA IT SECURITY ADMINISTRATOR 06/28/21 Metronidazole (METRONIDAZOLE) 250 Mg Tablet 1 TAB PO TID, #21 TAB Prov: CORNELIO CUADRA IT SECURITY ADMINISTRATOR 06/28/21 Nitrofurantoin Monohyd/M-Cryst (MACROBID 100 MG CAPSULE) 100 Mg Capsule 1 CAP PO BID for 7 Days, #14 CAP 0 Refills Prov: CORNELIO CUADRA IT SECURITY ADMINISTRATOR 06/28/21 CORNELIO CUADRA IT SECURITY ADMINISTRATOR Jun 28, 2021 13:33
--- NOTE | 2021-06-28 14:14 | RAD ---
US OB <14 WKS +TV History: Reason: ABDOMINAL PAIN AND +PREG / Spl. Instructions: / History: Comparison: None. Technique: Grayscale and color Doppler imaging of the pelvis was performed using transabdominal techn ique. Findings: The uterus measures 12.4 x 7.2 x 5.6 cm. Single intrauterine gestational sac with regular appearance. Yolk sac is identified. pole is id entified with crown-rump length 1.25 cm. Adjustment gestational age by ultrasound 7 weeks 3 days. Fet al heart rate 160 bpm. No perigestational fluid collection. Estimated date of delivery by ultrasound February 11, 2022. Right ovary measures 2.6 x 2.0 x 1.6 cm. Left ovary measures 2.8 x 2.0 x 1.7 cm. Normal Doppler flow to the ovaries bilaterally. No adnexal masses are seen. IMPRESSION: 1. Single intrauterine with gestational age 7 weeks 3 days heart rate 160 bpm. Electronically signed by: Deion Simon DO (06/28/2021 2:12 PM) [id number]
[2021-06-28 15:02] LABS: BASO # 0.1 x10^3/uL (0.0-0.2); BASO % 1 % (0-3); EOS # 0.3 x10^3/uL (0.0-0.7); EOS % 3 % (0-3); HEMATOCRIT 36.9 % (36.0-47.0); HEMOGLOBIN 12.3 g/dL (12.0-15.5); LYMPH # 3.1 x10^3/uL (1.0-4.8); LYMPH % 30 % (24-48); MEAN CORPUSCULAR HEMOGLOBIN 30 pg (25-35); MEAN CORPUSCULAR HGB CONC 34 g/dL (31-37); MEAN CORPUSCULAR VOLUME 91 fL (79-100); MONO # 0.7 x10^3/uL (0.0-1.1); MONO % 7 % (0-9); NEUT % 59 % (31-73); PLATELET COUNT 283 x10^3/uL (140-400); RED BLOOD COUNT 4.06 x10^6/uL (3.50-5.40); RED CELL DISTRIBUTION WIDTH 13.1 % (11.5-14.5); WHITE BLOOD COUNT 10.1 x10^3/uL (4.0-11.0)
[2021-06-28 15:17] LABS: CALCIUM 8.7 mg/dL (8.5-10.1); CREATININE 0.6 mg/dL (0.6-1.0); GFR 123.9; POTASSIUM 3.5 mmol/L (3.5-5.1)
[2021-06-28 16:38] LABS: BACTERIA,URINE MOD /HPF (0-FEW); RBC,URINE 0 /HPF (0-2)
[2021-06-28] MEDS ORDERED: AZITHROMYCIN 250 MG TABLET. PO ONE (17:00)
[2021-06-28] MEDS ORDERED: cefTRIAXone IV Push 1 GM VIAL. IVP ONE (17:00)
[2021-06-28 17:15] VITALS: BP 92/60
[2021-06-28] MEDS ORDERED: NITR100C62 PO (17:27)
[2021-06-28] MEDS ORDERED: ONDA4TAB12 PO (17:27)
[2021-06-28] MEDS ORDERED: METR-111 PO (17:27)
== END 2021-06-28 17:43 | disposition home or self-care (01) ==
LOC: ER 12:02
DX: O23.41 Unspecified infection of urinary tract in pregnancy, first trimester (principal); N39.0 Urinary tract infection, site not specified; Z3A.01 Less than 8 weeks gestation of pregnancy; R11.2 Nausea with vomiting, unspecified; N76.0 Acute vaginitis; B96.89 Other specified bacterial agents as the cause of diseases classified elsewhere
CPT/HCPCS: 76801; 80048; 81001; 81025; 84702; 85025; 87086; 87491; 87591; 96361; 96374; 96375; 99284; J0696; J2405; J7030; Q0111